=== PATIENT | female | born 1935 | race Caucasian/White ===

== ENCOUNTER 2016-04-12 00:16 | Emergency (ER) | payer OTHER ==
--- NOTE | 2016-04-12 00:59 | PROVIDER DOCUMENTATION ---
HPI-General Adult - General Chief Complaint: GI Bleed Stated Complaint: RECTAL BLEEDING Time Seen by Provider: 04/12/16 00:19 Source: patient Allergies/Adverse Reactions: Patient Allergies Allergy/AdvReac Type Severity Reaction Status Date / Time hydrocodone bitartrate * Allergy Mild ITCHING Verified 04/12/16 01:22 [From Lortab] codeine Allergy ITCHING Verified 04/12/16 01:22 morphine Allergy ITCHING Verified 04/12/16 01:22 Home Medications: Losartan [Cozaar] 100 mg PO DAILY 02/16/12 - History of Present Illness -Gen Adult Nature of Presenting Problems: Pt. is 81 yof that presents with c/o sudden onset of bright red blood from her rectum. Pt. reports feeling a slight pressure but denies any difficulties using the bathroom. Pt. states she called the 24 hour line for her PCP and was told to come to the ED. Location of Pain/Injury: reports: genitalia (Pressure in her rectum). denies: head, face, mouth, neck, chest, upper extremity, hand(s), abdomen, back, pelvis , lower extremity, feet, upper body, lower body, generalized Pain Radiation: reports: no radiation Quality of Pain: reports: pressure. denies: aching, burning, cramping, dull, fullness, indigestion, sharp, stabbing, tearing, throbbing, tightness Severity: reports: mild. denies: moderate, severe Onset/Duration: reports: abrupt, this afternoon Timing: reports: still present. denies: improving, gone now, resolved prior to arrival, intermittent, constant, changing over time, getting worse Context/Activities at Onset: reports: none. denies: recent emotional stress, recent physical stress, recent trauma history, possible bad food, cold exposure , out of country travel Modifying Factors: improves with: nothing Associated Symptoms: reports: other (Rectal bleeding). denies: anxiety, arm pain, back/neck pain, chest pain, constipation, cough, diaphoresis, diarrhea, dizziness, EENT symptoms, fatigue, fever/chills, genitourinary problems, headaches, heartburn, joint pain, loss of appetite, malaise, muscle aches, sinus congestion/drainage, nausea, rash, seizure, shortness of breath, sensory/ motor loss, pain with inspiration, swelling/mass in abdomen, syncope, vomiting, weakness, trouble walking Similar Symptoms Previously?: Yes Recently seen or treated by another doctor?: No Review of Systems - Adult - REVIEW OF SYSTEMS - ADULT Constitutional: reports: see HPI. denies: chills, fever, fatique Eyes: reports: see HPI. denies: discharge, blurred vision, double vision Ears, Nose, Mouth & Throat: reports: see HPI. denies: ear pain, nose pain, mouth/dental pain, throat swelling Cardiovascular: reports: see HPI. denies: chest pain, orthopnea, palpitations, syncope Respiratory: reports: see HPI. denies: cough, dyspnea on exertion, pleurisy, wheezing Gastrointestinal: reports: see HPI, rectal bleeding. denies: abdominal pain, hematemesis, diarrhea, nausea, vomiting Genitourinary: reports: see HPI. denies: dysuria, flank pain, hematuria, incontinence, urgency Musculoskeletal: reports: see HPI. denies: bone pain, back pain, joint pain, muscle aches, neck pain Integumentary: reports: see HPI. denies: hives, itching, rash, skin thickening Neurological: reports: see HPI. denies: ataxia, headache/migraines, numbness, seizure, slurred speech, tremors Psychiatric: reports: see HPI. denies: anxiety, depression, emotional problems , insomnia, panic attacks, suicidal thoughts Past History - Adult - PAST MEDICAL HISTORY-ADULT Review of Records: reports: Old Records Reviewed, Nursing Assessment Review, Medications Reviewed, Social history reviewed & non-contributory. Cardiovascular: reports: HTN - PRIOR SURGERIES/PROCEDURES Surgical/Procedure History: reports: cholecystectomy, hysterectomy - FAMILY HISTORY Family History: reviewed, not pertinent Physical Exam-General - PHYSICAL EXAM-ADULT Initial Vital Signs Reviewed: Yes - CONSTITUTIONAL General Appearance: alert, no apparent distress, obese. negative: thin, anxious , lethargic, slow to respond, obtunded, combative - EYES Eyes: PERRL/EOMI, pink conjunctivae. negative: conjuctival exudate, photophobia , subconjunctival hemorrhage - HEAD, EARS, NOSE, MOUTH & THROAT HENMT: normocephalic/atraumatic, moist mucous membranes. negative: angioedema, frontal tenderness, maxillary tenderness - NECK Neck: non-tender, full range of motion, supple, normal inspection. negative: lymphadenopathy, trachial deviation, thyromegaly - RESPIRATORY Respiratory: lungs clear, normal breath sounds. negative: crackles, rales, rhonchi, stridor, wheezing - CARDIOVASCULAR Cardiovascular: normal peripheral pulses, no edema, no JVD, no murmur, tachycardia. negative: extra beats, friction rub, irregularly irregular - CHEST (BREASTS) Chest/Breast: deferred - GASTROINTESTINAL (ABDOMEN) Abdominal Exam: normal bowel sounds, non tender, soft. negative: distended, guarding, rigid, rebound, tenderness, hernia, mass - GENITOURINARY Female Genitalia/Pelvic Exam: deferred Rectal Exam: normal rectal tone, hemorrhoids. negative: black stool, blood streaked stool, mass, tenderness Hemoccult Exam: heme negative stool - LYMPHATIC Lymphatic: no adenopathy. negative: axilla node tender, cervical node tenderness - MUSCULOSKELETAL Back Exam: normal inspection, no CVA tenderness, no vertebral tenderness. negative: ecchymosis, muscle spasm, vertebral tenderness Extremity: normal range of motion, non-tender, normal gait, normal inspection. negative: deformity, erythema, inflammation, swelling, tenderness Peripheral Pulses: radial (R): 2+, radial (L): 2+ - SKIN Integumentary: normal color, normal turgor, warm/dry. negative: cyanosis, diaphoresis, ecchymosis, erythema, jaundice, mottled, pallor, petechiae, purpura , rash, swelling, tenderness - NEUROLOGIC Neurologic: grossly normal, no motor/sensory deficits. negative: aphasia, facial droop, focal weakness, motor weakness, sensory deficit - PSYCHIATRIC Psych/Mental Status: normal mood/affect, normal thought content, normal thought process, oriented x 3. negative: anxious, paranoid, tearful Progress - PLAN OF CARE/RESULTS Progress/Plan/Lab Results: Discussed results and plan of care with patient. Patient agrees with plan and verbalizes understanding. Departure - Departure Time of Disposition Order: 01:44 DIAGNOSIS: Bleeding hemorrhoid Disposition: HOME 01 Certified Medical Emergency: Emergent Condition: Stable Additional Instructions: Follow up with primary care physician Take medications as directed Return to ED for any concerns or worsening of symptoms ED Follow Up Instructions: You have been treated by a care provider in the Emergency Department. These instructions are being provided to you so you can have an understanding of how to care for yourself upon discharge. Upon discharge from the Emergency Department, you are responsible for making arrangements for follow-up care by a physician of your choice. Take all prescribed medications as directed. Return to the Emergency Department immediately for any new or worsening symptoms. You may call the Physician Referral phone number at [phone] to obtain a list of Physicians who are taking new patients. Prescriptions: Hydrocortisone 2.5% Cream [Anusol-Hc Cream] 30 gm OR BID #1 tube Referrals: Aba Sargent DO [Primary Care Provider] - Attestation - Physician/ Mid-level Attestation Patient care was provided by Mid-level provider ([employer]/PA):: Yes Mid-level provider:: Alok Gomez Mid-level documentation review:: The Mid-level provider documentation, treatment plan and medical decision making was reviewed by the physician who agrees with all treatment and medical decision making by the MLP.
[2016-04-12 01:38] LABS: MANUAL DIFF NEEDED? NO
[2016-04-12 01:50] LABS: BASO% 0.4 % (0.0-0.8); EOS# 1.49 X1000 (0.0-0.7); EOS% 15.7 % (0.0-10.0); HEMATOCRIT 41.1 % (37.0-47.0); HEMOGLOBIN 13.8 g/dL (12.0-16.0); IMM GRAN# 0.02 X1000 (0.0-0.04); IMM GRAN% 0.2 % (0.0-0.5); LYMPH# 2.76 X1000 (1.2-3.4); MCH 30.6 PG (27-31); MCHC 33.6 g/dL (33-37); MCV 91.1 FL (81-99); MONO# 0.62 X1000 (0.11-0.59); MONO% 6.5 % (1.7-9.3); MPV 10.3 FL (7.4-10.4); NEUT% 48.2 % (42.2-75.2); PLT 276 X1000 (130-400); RBC 4.51 XMIL (4.2-5.4)
[2016-04-12 02:05] LABS: ALBUMIN 4.1 g/dL (3.5-5.0); CALCIUM 9.6 mg/dL (8.8-10.2); POTASSIUM 3.7 mmol/L (3.5-5.1); TOTAL BILIRUBIN 0.18 mg/dL (0.20-1.00); TOTAL PROTEIN 6.8 g/dL (6.3-8.3)
[2016-04-12 02:06] VITALS: BP 125/61
== END 2016-04-12 02:05 | disposition home or self-care (01) ==
LOC: ED 00:16
DX: K64.9 Unspecified hemorrhoids (principal); K62.5 Hemorrhage of anus and rectum; I10 Essential (primary) hypertension; E66.9 Obesity, unspecified; Z68.35 Body mass index [BMI] 35.0-35.9, adult; Z79.899 Other long term (current) drug therapy
CPT/HCPCS: 80053; 82270; 85025; 86850; 86900; 86901; 99283

== ENCOUNTER 2018-10-11 13:37 | Inpatient (IN) ==
[2018-10-11] MEDS ORDERED: ZOFRAN IV PRN (13:46)
[2018-10-11] MEDS ORDERED: NS 1,000 ML IV PRN (13:46)
[2018-10-11] MEDS ORDERED: MIRALAX PO PRN (13:53)
[2018-10-11 16:29] LABS: BASO# 0.02 X1000 (0.0-0.2); BASO% 0.2 % (0.0-0.8); EOS# 0.23 X1000 (0.0-0.7); EOS% 2.4 % (0.0-10.0); HEMATOCRIT 42.4 % (37.0-47.0); HEMOGLOBIN 14.1 g/dL (12.0-16.0); IMM GRAN# 0.02 X1000 (0.0-0.04); IMM GRAN% 0.2 % (0.0-0.5); LYMPH% 22.8 % (20.5-51.1); MCH 30.5 PG (27-31); MCHC 33.3 g/dL (33-37); MCV 91.8 FL (81-99); MONO% 9.3 % (1.7-9.3); MPV 9.8 FL (7.4-10.4); NEUT# 6.29 X1000 (1.4-6.5); NEUT% 65.1 % (42.2-75.2); PLT 280 X1000 (130-400); RBC 4.62 XMIL (4.2-5.4); RDW 13.2 % (11.5-14.5); WBC 9.66 X1000 (4.8-10.8)
[2018-10-11 16:59] LABS: AGAP 13; ALB/GLOB RATIO 1.6; ALBUMIN 4.1 g/dL (3.5-5.0); ALKALINE PHOSPHATASE 61 U/L (32-104); AMYLASE 32 U/L (20-200); BUN 14 mg/dL (8-22); CALCIUM 9.7 mg/dL (8.8-10.2); CHLORIDE 99 mmol/L (98-107); COSMO 274; CREATININE 0.7 mg/dL (0.5-0.9); ESTIMATED GFR > 60; GLUCOSE 100 mg/dL (70-104); GOT 19 U/L (10-30); GPT 25 U/L (10-36); LIPASE 14 U/L (13-60); POTASSIUM 3.8 mmol/L (3.5-5.1); SODIUM 137 mmol/L (136-145); TCO2 25 mmol/L (25-35); TOTAL PROTEIN 6.7 g/dL (6.3-8.3)
[2018-10-11 17:11] LABS: URINE SOURCE CLEAN CATCH
[2018-10-11 17:14] LABS: UR EPITHELIAL CELLS <10 /HPF (<10); URINE BACTERIA NEGATIVE /HPF; URINE RBC <10 /HPF (<10); URINE WBC <10 /HPF (<10)
[2018-10-11 17:15] LABS: BILIRUBIN URINE NEGATIVE (NEGATIVE); BLOOD URINE NEGATIVE (NEGATIVE); COLOR STRAW; GLUCOSE URINE NEGATIVE (NEGATIVE); KETONE URINE NEGATIVE (NEGATIVE); LEUKOCYTES URINE NEGATIVE (NEGATIVE); NITRITE URINE NEGATIVE (NEGATIVE); PH URINE 6.5; PROTEIN URINE NEGATIVE (NEGATIVE); SP GRAVITY URINE 1.009; TURBIDITY URINE CLEAR (CLEAR); UROBILINOGEN URINE NORMAL (NORMAL)
[2018-10-11] MEDS ORDERED: ZOSYN 3.375 GM in NS 50 ML IV ONE (18:51)
--- NOTE | 2018-10-11 19:11 | Diag Imaging Result Doc PS360 ---
EXAM: CT ABD/PELVIS W/PO AND IV CON INDICATION: LLQ pain o/p failure for diverticulitis TECHNIQUE: This exam was performed using automated exposure control, adjustment of mA or kV according to patient size, and/or use of iterative reconstruction technique. COMPARISON: 10/12/2014 FINDINGS: There is chronic elevation of the right hemidiaphragm. There is mild subsegmental atelectasis at the right lung base. There is a calcified granuloma at the anterior right lung base. There is a pleural-based noncalcified nodule at the left lung base that is stable consistent with a noncalcified granuloma. There is likely mild hepatic steatosis. The liver is essentially unremarkable, otherwise. There are calcified granulomata throughout the spleen. The spleen is unremarkable, otherwise. The pancreas and adrenal glands are unremarkable. The kidneys have a stable lobulated contour suggesting persistent lobulations or renal cortical scarring. The kidneys are essentially unremarkable, otherwise. The urinary bladder is unremarkable. There has been a prior hysterectomy. There is fairly extensive diverticulosis mainly involving the descending and sigmoid colon. There is no evidence of diverticulitis. No focal inflammatory changes, free abdominal gas, or free fluid is appreciated. There is lumbar spondylosis. There is no evidence of acute osseous abnormality. IMPRESSION: 1.Fairly extensive uncomplicated diverticulosis coli. 2.Other incidental/nonacute findings detailed above. No definite acute pathology by CT. Electronically signed by Bowen Williamson 10/11/2018 7:08 PM
[2018-10-11] MEDS: ELIQUIS PO SCH (20:11)
[2018-10-11] MEDS: TAMBOCOR PO SCH (20:11)
[2018-10-11] MEDS ORDERED: LAC-HYDRIN 12% LOTION TOP SCH (21:00)
--- NOTE | 2018-10-12 01:51 | HISTORY AND PHYSICAL ---
ADMITTING PHYSICIAN: Dr. Aba Sargent. CHIEF COMPLAINT: Left lower quadrant pain, outpatient failure for presumptive diagnosis of diverticulitis on oral medication. HISTORY OF PRESENT ILLNESS: Ms Crawley is a pleasant 83-year-old female who presents to the [facility] in interval follow up. She carries a variety of diagnoses including, but not limited to, historically Lopez's esophagitis, bilateral biceps tendonitis, atrial fibrillation status ablated procedure, osteopenia/osteoporosis, history of diverticulosis, hypertension, obstructive sleep apnea, long-term use of antithrombotics and antiplatelets, rheumatic valvular heart disease, personal history of colon polyps, constipation, diabetes, osteoarthritis of the left knee, mood disorder and vitamin D deficiency. She presents after being seen approximately a week ago and presumptively diagnosed with diverticulitis, this without lab and without imaging studies. She states that it has been difficult for her to take the Augmentin 3 times a day and has not been compliant with her medication. She comes back today and is noted to have persistence of lower mid abdominal pain and left lower quadrant pain without guarding or rigidity. Based on presence of persistent pain and concern for acute diverticulitis, she is admitted to the internal medicine service for further diagnostic imaging and initiation of IV antibiotics. ALLERGIES: Lortab, statins, codeine, Trulicity and trazodone. MEDICATIONS ON ADMISSION: Metoprolol 50 mg once daily, flecainide 100 mg twice daily, spironolactone/hydrochlorothiazide 25/25 one-half tablet on Mondays, Wednesdays and Fridays, Eliquis 2.5 mg twice daily, Trintellix 10 mg once daily, losartan 100 mg once daily, Flonase 0.5 mg 1 spray each nostril once daily, and vitamin D3 of 5000 international units once daily. She is also on a variety of supplements including d mannose, MiraLAX, vitamin C, [place] 2 tablets daily, zinc replacement, Opti-Mag 125 mg once daily, desonide 1 application t.i.d. and alclometasone dipropionate 0.5% b.i.d. PAST MEDICAL HISTORY: As per HPI. FAMILY HISTORY: Father secondary to alcohol poisoning in 1977. Mother in 2010, congestive heart failure. Brother alive at 70 with history of kidney cancer. Sister alive at 78 with carpal tunnel. Another sister alive at 73, no medical history, and an sister at 5 months old due to pneumonia. SOCIAL HISTORY: Patient is with 3 children ranging between 55 and 61, 6 grandchildren and 3 great-grandchildren. She was for 52 years before in July of 2011. Patient has a remote history of tobacco stopping in 2016 and has 2 or less drinks per month. Patient has advanced medical directive which states a reasonable medical effort. Last annual wellness visit noted to be October 2017. Last physical 07/22/2018. PAST SURGERY: Appendectomy in 1963, cholecystectomy in 1963, hysterectomy without oophorectomy in 1979, left knee surgery in September of 2017, right knee arthroscopy in May of 2013 and radiofrequency ablation for cardiac dysrhythmia at [place]. This was done in March of 2018 with 100% success. REVIEW OF SYSTEMS: Twelve point review of systems is unremarkable. Patient with recent extensive cardiac workup in the fall with transesophageal echo and DC cardioversion which was unsuccessful. She underwent transthoracic imaging showing moderate TR with normal left ventricular function and mild MR. Pulmonary pressures were not assessed. Again, she subsequently underwent a pulmonary vein intervention with radiofrequency ablation with 100% success to normal sinus rhythm. PHYSICAL EXAMINATION: VITALS IN THE OFFICE: Blood pressure 142/78, pulse at 96, saturating 91%, temperature at 98.5 degrees. Weight at 233 pounds with a BMI at 40.33. GENERALLY: This is a well-developed, well-nourished, pleasant elderly female in no acute distress. HEENT: Unremarkable. RESPIRATORY: Clear to auscultation. CARDIOVASCULAR: Regular rate and rhythm without murmurs, gallops, or rubs. ABDOMEN: Protuberant and obese with some tenderness in the mid to left lower quadrant without rebound, guarding, or rigidity. MUSCULOSKELETAL: Left lower extremities showing approximately 1+ pitting edema. The remainder of the musculoskeletal exam as unremarkable. NEUROLOGIC: Exam is unremarkable. Patient is alert and oriented x3 without any cognitive deficiencies. SKIN: Showing hyperkeratosis of the heel with subsequent plantar cracking. No evidence of cellulitis or lymphangitic spread from the foot proximally. LABORATORY: Obtained on admission: Sodium 137, potassium 3.8, chloride 99, bicarbonate 25, BUN and creatinine at 14 and 0.7, glucose at 100, calcium at 9.7, magnesium at 2.0, AST and ALT at 19 and 25, total protein at 6.7, amylase and lipase are normal at 32 and 17 appropriate respectively. White blood cell count is normal at 9.66, hemoglobin and hematocrit at 14.1 and 42.4 with platelets at 280,000. Urine is negative for blood, glucose, nitrites and bacteria. IMPRESSION: An 83-year-old with known history of diverticulosis presenting approximately 7 days ago with left lower quadrant pain and left posterior flank pain raising concern for acute diverticulitis. She was placed on Augmentin secondary to historical difficulty with Cipro and Flagyl. She was noncompliant over the past several days and would be best served with diagnostic imaging and IV antibiotics. She will be started on Zosyn 3.375 g IV q.6-[address] hours pending return of CT scan of the abdomen and pelvis. She also is in need of explanation for lower extremity edema left greater than right. Differential diagnosis including, but not limited to, chronic venous stasis, primary degenerative arthritic and synovial problems within the left lower extremity involving the knee, intraabdominal processes such as lymphadenopathy or masses. She does have a previous history of tubular adenomatous polyps in 2014. Colonoscopy as recently as 2016 was noted to be unremarkable. PA pressures historically in July of 2016 had been 32.49. No recent studies are available for comparison. cc: Aba Sargent DO
[2018-10-12] MEDS ORDERED: PRILOSEC PO SCH (07:00)
[2018-10-12 07:15] VITALS: BP 124/50
[2018-10-12] MEDS: TAMBOCOR PO SCH (08:31)
[2018-10-12] MEDS: ELIQUIS PO SCH (08:31)
[2018-10-12] MEDS ORDERED: TRINTELLIX PO SCH (09:00)
[2018-10-12] MEDS ORDERED: MAXZIDE-25 PO SCH (09:00)
[2018-10-12] MEDS ORDERED: LOPRESSOR PO SCH (09:00)
[2018-10-12] MEDS ORDERED: COZAAR PO SCH (09:00)
[2018-10-12] MEDS ORDERED: CULTURELLE PO SCH (09:00)
--- NOTE | 2018-10-13 10:11 | DISCHARGE SUMMARY ---
ADMISSION DATE: 10/11/2018 DISCHARGE DATE: 10/12/2018 DISCHARGE DIAGNOSIS: Left lower quadrant pain with a known history of extensive diverticular disease involving the descending and sigmoid colon, status post laboratory found to be unremarkable and a CT scan without evidence of pericolonic inflammatory changes, abscess, or free fluid. Left lower quadrant pain is suspected to be adhesion mediated secondary to previous gynecological procedures and intra-abdominal surgeries. HOSPITAL COURSE: Ms. Crawley was admitted to the internal medicine service for additional medical workup and overnight observation after failing outpatient therapy for presumptive diagnosis of diverticulitis. Oral antibiotic therapy was started approximately 7 days ago empirically with the patient's history of diverticular disease and clinical exam. No studies or laboratory were obtained at that time. She presented to the internal medicine service yesterday afternoon with persistence of pain and radiation to the posterior left flank. It was felt that, based on outpatient failure, she would benefit from diagnostic studies and additional labs. She was brought in to the internal medicine service. A CT scan was performed, failing to demonstrate any evidence of acute diverticulitis or other worrisome findings. CT scan did demonstrate a chronic elevation of the right hemidiaphragm, evidence of old granulomatous disease, fatty liver, and lumbar spondylosis. Based on these findings, it was felt that no additional antibiotics were indicated and that she was stable for discharge to home. There was a concern for left lower extremity swelling. The patient has a history of venous stasis. I have advised her that this could be followed up as an outpatient. She is on Eliquis as it relates to historical atrial fibrillation. Medications at the time of discharge are unchanged and are as follows: Eliquis 2.5 mg twice daily, metoprolol 50 mg once daily, Maxzide 1/2 tablet Sunday, Sunday, Sunday, Prilosec 40 mg once daily, flecainide 100 mg twice daily, Trintellix 10 mg once daily, losartan 100 mg once daily, MiraLAX as directed. Medications in the hospital system which will be stopped at the time of discharge including Xarelto, Multaq, and hydrocortisone cream. DISPOSITION: The patient is released with interval followup as an outpatient no later than next , October 17. She has been instructed to contact the Internal Medicine Clinic on Sunday for a followup appointment. In the interim, we will also be assisting her with arranging for a venous Doppler ultrasound of the left lower extremity. She has been advised that should she have any problems or concerns over the weekend, to call my cell phone, and she understands the course of treatment and plan. The patient is released with no further issues or concerns. Discharge summary is dictated on the morning of discharge. cc: Aba Sargent,
== END 2018-10-12 11:39 | disposition home or self-care (01) | DRG 395 ==
LOC: DIRADM 13:37 → 3N 14:46
PROVIDERS: ADMIT Internal Medicine; ATTEND Internal Medicine
CPT/HCPCS: 74177; 80053; 81001; 82150; 83690; 83735; 83880; 84439; 84443; 85025; 94760; 94761; A9270; J2543; J7030; Q9967